=== PATIENT | female | born 1945 | race Caucasian/White ===

== ENCOUNTER 2018-03-12 15:12 | Emergency (ER) | payer MEDICARE ==
--- NOTE | 2018-03-12 15:35 | UC ---
Complaint Female HPI - HPI Summary HPI Summary: 72 yo female presents with two complaints. 1) Over the last week she has been having urinary frequency, burning, and bladder pressure. Has had many UTIs in the recent years and this feels the same. 2) She has a history of gout and RA. Over the last few days her right middle finger has been red, swollen, and painful at the DIP and PIP. She does take daily allopurinol, but recently was weaned off colchicine and thinks this is why her gout has returned. She has a regular appt with her PCP on 03/22/18. Denies fever, chills, n/v, hematuria, or back/flank pain. - History Of Current Complaint Stated Complaint: URINARY Time Seen by Provider: 03/12/18 15:35 Hx Obtained From: Patient Onset/Duration: Gradual Onset Severity Initially: Mild Severity Currently: Mild Pain Intensity: 3 Pain Scale Used: 0-10 Numeric - Allergies/Home Medications Allergies/Adverse Reactions: Allergies Allergy/AdvReac Type Severity Reaction Status Date / Time Penicillins Allergy Rash Verified 03/12/18 15:38 Home Medications: Home Medications Allopurinol 100 mg PO DAILY 03/12/18 [History Confirmed 03/12/18] Aspirin 81 mg PO DAILY 03/12/18 [History Confirmed 03/12/18] Carvedilol 6.25 mg PO DAILY 03/12/18 [History Confirmed 03/12/18] Lisinopril 10 mg PO DAILY 03/12/18 [History Confirmed 03/12/18] Nitroglycerin TAB 0.4 MG* 0.4 mg PO Q15M PRN 03/12/18 [History Confirmed ] Warfarin TAB(*) [Coumadin TAB(*)] 3 mg PO DAILY 03/12/18 [History Confirmed 07/24] hydroCHLOROthiazide [Hydrochlorothiazide] 25 mg PO DAILY 03/12/18 [History Confirmed 03/12/18] PMH/Surg Hx/FS Hx/Imm Hx Cardiovascular History: Cardiac Disease, Hypertension, Atrial Fibrillation - Family History Known Family History: Positive: Unknown - Social History Occupation: Retired Lives: With Family Alcohol Use: None Substance Use Type: None Review of Systems All Other Systems Reviewed And Are Negative: Yes Constitutional: Positive: Negative Skin: Positive: Negative Respiratory: Positive: Negative Cardiovascular: Positive: Negative Gastrointestinal: Positive: Negative Genitourinary: Positive: Dysuria Neurovascular: Positive: Negative Musculoskeletal: Positive: Other: - Right middle finger pain/redness/swelling Neurological: Positive: Negative Psychological: Positive: Negative Physical Exam - Summary Physical Exam Summary: GENERAL: NAD. WDWN. No pain distress. SKIN: No rashes, sores, lesions, or open wounds. NECK: Supple. Nontender. No lymphadenopathy. CHEST: CTAB. No r/r/w. No accessory muscle use. Breathing comfortably and in no distress. CV: RRR. Without m/r/g. Pulses intact. Cap refill <2seconds ABDOMEN: Soft. NTTP. No distention or guarding. No CVA tenderness. Bowel sounds present MSK: Right middle finger: Mild erythema, edema, and moderate tenderness to light palpation at DIP and PIP. FROM. NEURO: Alert. PSYCH: Age appropriate behavior. Triage Information Reviewed: Yes Vital Signs: Vital Signs: Temp Pulse Resp BP Pulse Ox 97.6 F 72 14 109/50 99 03/12/18 15:36 03/12/18 15:36 03/12/18 15:36 03/12/18 15:36 03/12/18 15:36 Laboratory Tests 03/12/18 16:30 POC Urine Color Other POC Urine Clarity Cloudy POC Urine pH 6.0 POC Ur Specif [place] <= 1.005 L POC Urine Protein 2+ A POC Ur Glucose (UA) Negative POC Urine Ketones Negative POC Urine Blood 2+ A POC Urine Nitrite Negative POC Urine Bilirubin Negative POC Urine Urobilinogen 0.2 POC U Leukocyte Esteras 3+ A Vital Signs Reviewed: Yes Complaint Female Dx - Course Course Of Treatment: UTI and gout of right middle finger. Rx for keflex for UTI and prednisone for gout. Keep f/u with PCP on 03/22 for recheck. - Differential Dx/Diagnosis Provider Diagnosis: UTI (urinary tract infection), Gout Discharge - Sign-Out/Discharge Documenting (check all that apply): Patient Departure All imaging exams completed and their final reports reviewed: No Studies - Discharge Plan Condition: Stable Disposition: HOME Prescriptions: Cephalexin CAP* [Keflex CAP*] 500 mg PO BID #14 cap predniSONE TAB* [Deltasone 10 MG TAB*] 10 mg PO DAILY #14 tab Patient Education Materials: Urinary Tract Infection in Women (DC), Gout (ED) Referrals: Donnie Gale MD [Primary Care Provider] - Additional Instructions: If you develop a fever, shortness of breath, chest pain, new or worsening symptoms - please call your PCP or go to the ED. - Billing Disposition and Condition Condition: STABLE Disposition: Home
[2018-03-12 15:42] VITALS: BP 109/50
== END 2018-03-12 16:48 | disposition home or self-care (01) ==
LOC: UCCORT 15:12
DX: N39.0 Urinary tract infection, site not specified (principal); B96.20 Unspecified Escherichia coli [E. coli] as the cause of diseases classified elsewhere; M10.9 Gout, unspecified; Z88.0 Allergy status to penicillin; I10 Essential (primary) hypertension; Z79.01 Long term (current) use of anticoagulants; M06.9 Rheumatoid arthritis, unspecified; I51.9 Heart disease, unspecified
CPT/HCPCS: 81003; 87077; 87086; 87186; 99212; G0463